=== PATIENT | female | born 1940 | race Two or more races ===

== ENCOUNTER → 2018-12-02 | Outpatient (CLI) | payer OTHER ==
[~2018-12-02] MED LIST: ASPI325 PO; ASPI81CH PO; BENADRYL25 MG PO; ENOX100I SQ; EPIN.3I IM; ESTR.75; GEMF600 PO; HYDACE5325 PO; Lisinopril2.5 MG PO; Pepcid20 MG PO; Prednisone50 MG PO; WARF5 PO
[2018-12-04 16:07] LABS: HPV 16 Negative (Negative); HPV 18 Negative (Negative); HPV OTHER HR TYPES Negative (Negative)
== END | disposition home or self-care (01) ==
LOC: LAB SHORT 14:30 → LAB 14:30
PROVIDERS: Family Medicine
DX: Z12.72 Encounter for screening for malignant neoplasm of vagina (principal); Z90.710 Acquired absence of both cervix and uterus
CPT/HCPCS: 87624; G0145